=== PATIENT | male | born 1965 | race African-American/Black ===

== ENCOUNTER 2016-12-11 19:11 | Emergency (ER) | payer MEDICARE, OTHER ==
[~2016-12-11] VITALS: Ht 180.3 cm; Wt 81.6 kg
[2016-12-11] MEDS ORDERED: Haloperidol 5mg/ml Inj IM ONE (19:15)
[2016-12-11] MEDS ORDERED: DiphenhydrAMINE 50mg/ml Inj IM ONE (19:15)
[2016-12-11] MEDS ORDERED: LORazepam Inj 2mg/ml 1ml IM ONE (19:15)
[2016-12-11 19:16] VITALS: BP 164/80
[2016-12-11 22:01] VITALS: BP 150/81
[2016-12-11 22:05] VITALS: BP 143/78
--- NOTE | 2016-12-12 14:15 | Emergency Room Report ---
History of Present Illness General Chief Complaint: Behavioral Complaint Source: Patient, EMS Present Illness HPI 51YOM BIBEMS found walking in street yelling with hands over ears. Patient not providing additional HPI at this time - sitting in stretcher, hands over ears intermittently shouting. Per staff, patient has been in ED before, exhibiting similar behavior. Known psych history, schizophrenic. On anti-psychotic and cogentin. Allergies: Coded Allergies: UNABLE TO ASSESS (Unverified , 12/11/16) Patient History Past Medical History: psych hx Past Surgical History: unable to obtain Pertinent Family History: unable to obtain Immunizations: UTD Reviewed Nursing Documentation: PMH: Agreed, PSxH: Agreed Nursing Documentation-PMH History Of Psychiatric Problem: Yes Review of Systems All Other Systems: limited - patient not contributign Physical Exam Vital Signs Date Time Temp Pulse Resp B/P Pulse Ox O2 Delivery O2 Flow Rate FiO2 12/11/16 19:00 120 16 190/70 99 Room Air 12/11/16 19:16 97.6 Sp02 EP Interpretation: reviewed, abnormal General Appearance: normal inspection, well appearing, no apparent distress, alert, GCS 15, non-toxic Head: normocephalic, atraumatic Eyes: bilateral eye EOMI, bilateral eye PERRL ENT: normal ENT inspection, hearing grossly normal, normal voice Neck: normal inspection, full range of motion, supple, no bony tend Respiratory: normal inspection, lungs clear, normal breath sounds, no respiratory distress, no retraction, no wheezing Cardiovascular #1: regular rate, rhythm, no edema Gastrointestinal: normal inspection, normal bowel sounds, non tender, soft, no guarding, no hernia Genitourinary: no CVA tenderness Musculoskeletal: normal inspection, back normal, normal range of motion, Drake' s Sign negative Neurologic: normal inspection, alert, oriented x3, responsive, routing equipment tender III-XII nml as tested, motor strength/tone normal, speech normal Psychiatric: normal inspection, mood/affect normal, no suicidal/homicidal ideation, no delusions Skin: normal inspection, normal color, no rash Lymphatic: normal inspection Medical Decision Making Diagnostic Impression: Primary Impression: Behavioral change ER Course 51YOM with likely acute on chronic behavior change from schizophrenia. VS notable for hypertension. Afebrile. Otherwise non-toxic Patient was given Haldol/benadryl/ativan IM Was observed in the ED - did not become sedated, but in fact started talking and behaving normally/appropriately. Endorses non-compliance with meds. States he missed his regular monthly "injection" and cogentin. Feels better. Denies SI, HI, AVH After period of observation in ED, patient asked to go home. He knows his name , address, date/time. He was discharged home with recommended psych followup Initial hypertesion resolved s/p medication. Last Vital Signs Date Time Temp Pulse Resp B/P Pulse Ox O2 Delivery O2 Flow Rate FiO2 12/11/16 22:05 72 16 143/78 99 Room Air 12/11/16 22:01 97.6 Status: improved Disposition: HOME, SELF-CARE Condition: Improved Referrals: [facility],REFERRING (PCP) Patient Instructions: Schizophrenia FANG DESAI M.D. Dec 12, 2016 14:15
== END 2016-12-11 22:09 | disposition home or self-care (01) ==
LOC: EDBD 19:11 → EMR 19:25
DX: R46.89 Other symptoms and signs involving appearance and behavior (principal); F20.9 Schizophrenia, unspecified
CPT/HCPCS: 96372; 99284; J1200; J1630

== ENCOUNTER 2016-12-25 23:22 | Emergency (ER) | payer MEDICARE ==
[~2016-12-25] VITALS: Ht 172.7 cm; Wt 72.6 kg
[2016-12-25] MEDS ORDERED: Haloperidol 5mg/ml Inj ONE (23:29)
[2016-12-25] MEDS ORDERED: Haloperidol 5mg/ml Inj IM ONE (23:45)
--- NOTE | 2016-12-26 00:40 | Emergency Room Report ---
History of Present Illness General Chief Complaint: Behavioral Complaint Source: Medical Record, EMS Present Illness HPI This is a 51-year-old male with a history of schizophrenia. He is chronically homeless. He's been here multiple times under [facility] Moses. He was brought in because he had bizarre behavior. There is no trauma. No other complaint. Patient is a poor historian. Allergies: Coded Allergies: UNABLE TO ASSESS (Unverified , 12/11/16) Patient History Past Medical History: see triage record, old chart reviewed, psych hx Past Surgical History: unable to obtain Pertinent Family History: unable to obtain Immunizations: other Reviewed Nursing Documentation: PMH: Agreed, PSxH: Agreed Nursing Documentation-PMH Past Medical History: No History, Except For History Of Psychiatric Problem: Yes Review of Systems All Other Systems: limited - Patient is a poor historian Physical Exam Vital Signs Date Time Temp Pulse Resp B/P Pulse Ox O2 Delivery O2 Flow Rate FiO2 12/25/16 23:22 116 28 146/92 98 Room Air vitals mild tachycardia Sp02 EP Interpretation: reviewed, normal General Appearance: well appearing, no apparent distress, alert Head: normocephalic, atraumatic Eyes: bilateral eye EOMI, bilateral eye PERRL ENT: hearing grossly normal, normal pharynx Neck: full range of motion, supple, no meningismus Respiratory: chest non-tender, lungs clear, normal breath sounds Cardiovascular #1: regular rate, rhythm, no murmur Gastrointestinal: normal bowel sounds, non tender, no mass, no organomegaly, no bruit, non-distended Musculoskeletal: back normal, normal range of motion Neurologic: alert, oriented x3 Psychiatric: other - Patient is rambling Skin: warm/dry Medical Decision Making Diagnostic Impression: Primary Impression: Psychosis Qualified Codes: F23 - Brief psychotic disorder Additional Impression: Amphetamine abuse ER Course Patient presents with psychosis. Is no underlying schizophrenia exacerbated by drug use. He was combative and had to be sedated with Haldol. He sleeping comfortably now. Will reassess in the morning. This patient is a chronic risk of self injury due to poor impulse control, limited coping skills, and judgment intermittently impaired by intoxication. 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 Hospitalization would likely attenuate risk of self-harm only during fpc period, without lasting risk reduction. Serious self-harm , while possible, would likely be inadvertent, and because of impulsivity, and foreseeable. For these reasons, I do not believe hospitalization would provide meaningful reduction in risk of self-harm. Last Vital Signs Date Time Temp Pulse Resp B/P Pulse Ox O2 Delivery O2 Flow Rate FiO2 12/25/16 23:22 116 28 146/92 98 Room Air Status: improved Disposition: HOME, SELF-CARE Condition: Stable Referrals: [facility],REFERR[facility] (PCP) Additional Instructions: abstain from drugs and alcohol. Followup with your Dr. in 7 days. Followup with mental health. Return if worse. MILDRED KHOURY M.D. Dec 26, 2016 00:40
[2016-12-26 01:10] VITALS: BP 137/84
[2016-12-26 06:02] VITALS: BP 137/84
[2016-12-26] MEDS ORDERED: BENZTROPINE MESY1 MG PO (15:16)
== END 2016-12-26 06:04 | disposition home or self-care (01) ==
LOC: EDBD 23:22 → EMR 23:35
DX: F23 Brief psychotic disorder (principal); F15.10 Other stimulant abuse, uncomplicated; Z59.0 Homelessness; F20.9 Schizophrenia, unspecified
CPT/HCPCS: 80300; 96372; 99283; J0515; J1630

== ENCOUNTER 2016-12-26 14:53 | Emergency (ER) | payer MEDICARE, OTHER ==
[~2016-12-26] VITALS: Ht 180.3 cm; Wt 68.0 kg
--- NOTE | 2016-12-26 15:14 | Emergency Room Report ---
History of Present Illness General Chief Complaint: Allergic Reaction Source: Patient Present Illness HPI 51-year-old male presents emergency department complaining of cramping in his toes, hands and intermittent biting his tongue due to tightness in his jaw since yesterday. Patient states he has a history of schizophrenia and was administered IM Haldol for which he has had previous dystonic reactions to in the past. Patient states that Benadryl was given in the past with no relief in the only medication works for him is Cogentin. Patient denies bleeding from the time she denies swelling of the lips or tongue, denies difficulty breathing, wheezing or shortness of breath. Patient reports that when he attempts to walk his toes curl up just like previous reactions to Haldol he has had in the past. pt. denies taking medication regularly for his psychiatric symptoms. Denies CP, Palpitations, LOC, AMS, dizziness, Changes in Vision, Sensation, paresthesias, or a sudden severe headache. Allergies: Coded Allergies: No Known Allergies (Unverified , 12/26/16) UNABLE TO ASSESS (Unverified , 12/11/16) Patient History Past Medical History: see triage record Past Surgical History: none Pertinent Family History: none Reviewed Nursing Documentation: PMH: Agreed, PSxH: Agreed Nursing Documentation-PMH Past Medical History Deferred: Pt Cognitively Impaired Past Medical History: No Stated History Review of Systems All Other Systems: negative except mentioned in HPI Physical Exam Vital Signs Date Time Temp Pulse Resp B/P Pulse Ox O2 Delivery O2 Flow Rate FiO2 12/26/16 14:53 97.5 91 16 127/80 99 Room Air Sp02 EP Interpretation: reviewed, normal General Appearance: no apparent distress, alert, GCS 15, non-toxic Head: normocephalic, atraumatic Eyes: bilateral eye PERRL, bilateral eye normal inspection ENT: hearing grossly normal, normal pharynx, no angioedema, normal voice, TMs + canals normal, other - no swelling of the lips or tongue, no appreciable lesions/bites/trauma noted to the tongue. pt. exhibits lip smacking. Neck: full range of motion, no meningismus, no bony tend, supple/symm/no masses Respiratory: chest non-tender, lungs clear, normal breath sounds, speaking full sentences Cardiovascular #1: regular rate, rhythm, no edema, normal capillary refill Cardiovascular #2: 2+ radial (R), 2+ radial (L), 2+ dorsalis pedis (R), 2+ dorsalis pedis (L) Gastrointestinal: normal bowel sounds, non tender, soft, no guarding, no rebound Rectal: deferred Musculoskeletal: back normal, gait/station normal, normal range of motion, non- tender, other - pt is intermittently squeezing /making fists bilaterally. pt is also able to relax hands. Neurologic: alert, oriented x3, responsive, motor strength/tone normal, sensory intact, speech normal Psychiatric: memory normal, anxious - mildly anxious affect, pt exhibits lip smacking. Skin: normal color, no rash, warm/dry, well hydrated Lymphatic: no adenopathy Medical Decision Making PA Attestation Dr. Samaniego is my supervising Physician whom patient management has been discussed with. Diagnostic Impression: Primary Impression: Tongue biting Additional Impression: Dystonia of foot ER Course 51-year-old male presents emergency department complaining of cramping in his toes, hands and intermittent biting his tongue due to tightness in his jaw since yesterday. Patient states he has a history of schizophrenia and was administered IM Haldol for which he has had previous dystonic reactions to in the past. Patient states that Benadryl was given in the past with no relief in the only medication works for him is Cogentin. Patient denies bleeding from the time she denies swelling of the lips or tongue, denies difficulty breathing, wheezing or shortness of breath. Patient reports that when he attempts to walk his toes curl up just like previous reactions to Haldol he has had in the past. pt. denies taking medication regularly for his psychiatric symptoms. Ddx considered but are not limited to cellulitis, allergic reaction, angio edema , abscess, EPS, Dystonic Reaction, NMS Vital signs: are WNL, pt. is afebrile H&PE are most consistent with mild subjective dystonic reaction, no evidence to airway compromise or rapid progression of symptoms. lip smacking suspicious for psych sx vs. drug use. - Review of pt. previous chart from visit 2 days ago shows UDS positive for amphetamines. ORDERS: none required at this time, the diagnosis is clinical ED INTERVENTIONS: IM Cogentin 2mg. will d/c pt. with oral medication for 3 days. d/w pt. proper follow up. pt. given [facility] urgent care information. pt. to return to ED with worsening of symptoms. DISCHARGE: At this time pt. is stable for d/c to home. Will provide printed patient care instructions, and any necessary prescriptions. Care plan and follow up instructions have been discussed with the patient prior to discharge. Last Vital Signs Date Time Temp Pulse Resp B/P Pulse Ox O2 Delivery O2 Flow Rate FiO2 12/26/16 14:53 97.5 91 16 127/80 99 Room Air Disposition: HOME, SELF-CARE Condition: Stable Scripts Benztropine Mesylate* (BENZTROPINE MESYLATE*) 1 Mg Tablet 1 MG PO BID for 2 Days, #4 TAB Prov: Kristen Velazquez 12/26/16 Patient Instructions: Dystonic Reaction Additional Instructions: Take medications as directed. Follow up with PCP in 3 days Return sooner to ED if new symptoms occur, or current symptoms become worse. Continue to refrain from substance abuse such as amphetamines. - Please note that this Emergency Department Report was dictated using [employer] caner technology software, occasionally this can lead to erroneous entry secondary to interpretation by the dictation equipment. Kristen Velazquez Dec 26, 2016 15:14
[2016-12-26] MEDS ORDERED: BENZTROPINE MESY1 MG PO (15:16)
[2016-12-26 15:30] VITALS: BP 120/78
[2016-12-26 15:55] VITALS: BP 120/78
== END 2016-12-26 15:55 | disposition home or self-care (01) ==
LOC: EDBD 14:53 → EMR 15:54
DX: G24.9 Dystonia, unspecified (principal); F20.9 Schizophrenia, unspecified
CPT/HCPCS: 96372; 99283; J0515

== ENCOUNTER 2017-01-03 20:20 | Emergency (ER) | payer MEDICARE ==
[~2017-01-03] VITALS: Ht 175.3 cm; Wt 68.0 kg
[~2017-01-03 20:20] MED LIST: BENZTROPINE MESY1 MG PO
[2017-01-03] MEDS ORDERED: DiphenhydrAMINE 50mg/ml Inj IM ONE (20:30)
[2017-01-03] MEDS ORDERED: LORazepam Inj 2mg/ml 1ml IM ONE (20:30)
[2017-01-03] MEDS ORDERED: Haloperidol 5mg/ml Inj IM ONE (20:30)
[2017-01-04] VITALS: BP 112/63
[2017-01-04 02:56] VITALS: BP 116/70
--- NOTE | 2017-01-04 04:17 | Emergency Room Report ---
Physical Exam Vital Signs Date Time Temp Pulse Resp B/P Pulse Ox O2 Delivery O2 Flow Rate FiO2 01/03/17 20:19 90 16 134/92 99 Room Air 01/04/17 00:00 97.3 Medical Decision Making Diagnostic Impression: Primary Impression: Psychosis Qualified Codes: F23 - Brief psychotic disorder Additional Impression: Amphetamine abuse ER Course Patient was seen initially by Dr. Beebe. Please see his H&P for further information. Patient was signed out to me. He's been here multiple time under this name and also as a [facility] Fernando Lopes. Usually with acute psychosis and altered mental status from drug and alcohol. He slept in the night. His awake now and is alert oriented. We'll discharge home. He is not suicidal or homicidal. This patient is a chronic risk of self injury due to poor impulse control, limited coping skills, and judgment intermittently impaired by intoxication. 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 Hospitalization would likely attenuate risk of self-harm only during assisted period, without lasting risk reduction. Serious self-harm , while possible, would likely be inadvertent, and because of impulsivity, and foreseeable. For these reasons, I do not believe hospitalization would provide meaningful reduction in risk of self-harm. Last Vital Signs Date Time Temp Pulse Resp B/P Pulse Ox O2 Delivery O2 Flow Rate FiO2 01/04/17 02:56 97.1 78 16 116/70 99 Room Air Status: improved Disposition: HOME, SELF-CARE Condition: Stable Referrals: [facility],REFERRING (PCP) Patient Instructions: Self-Destructive Behavior Additional Instructions: Abstain from drugs and alcohol. Go to rehabilitation. Followup with your DrPrimitivo in 2-3 days. Followup with mental health. Return if worse. MILDRED KHOURY M.D. Jan 04, 2017 04:17
[2017-01-04 05:28] VITALS: BP 122/78
--- NOTE | 2017-01-04 14:22 | Emergency Room Report ---
History of Present Illness General Chief Complaint: Behavioral Complaint Source: Patient, EMS Present Illness HPI 52-year-old male presents to ED for evaluation. Patient is well known to [facility]. Has been here multiple times under his real name and under the name of Luis Fernando Lopes. Patient is brought in by ambulance for bizarre behavior. Patient is holding his head with his hand screaming and yelling. Patient is known to perform this behavior in the past. Patient has extensive history of drug use. Patient is not providing any additional history at this time. No signs of trauma. Denies any suicidal homicidal ideation. No other aggravating relieving factors. Denies any other associated symptoms Allergies: Coded Allergies: No Known Allergies (Unverified , 12/26/16) UNABLE TO ASSESS (Unverified , 12/11/16) Patient History Past Medical History: psych hx Past Surgical History: none Pertinent Family History: none Social History: Reports: drug use, Denies: alcohol use, smoking Immunizations: UTD Reviewed Nursing Documentation: PMH: Agreed, PSxH: Agreed Nursing Documentation-PMH Past Medical History: No History, Except For History Of Psychiatric Problem: Yes Review of Systems All Other Systems: negative except mentioned in HPI Physical Exam Vital Signs Date Time Temp Pulse Resp B/P Pulse Ox O2 Delivery O2 Flow Rate FiO2 01/03/17 20:19 90 16 134/92 99 Room Air 01/04/17 00:00 97.3 Sp02 EP Interpretation: reviewed, normal General Appearance: alert, other - screaming, holding hands over ears Head: normocephalic Eyes: bilateral eye PERRL, bilateral eye normal inspection ENT: normal ENT inspection Neck: normal inspection Respiratory: chest non-tender, lungs clear, normal breath sounds, speaking full sentences Cardiovascular #1: regular rate, rhythm, no edema Gastrointestinal: normal inspection Rectal: deferred Genitourinary: no CVA tenderness Musculoskeletal: normal inspection Neurologic: alert, other - agitated/combative Psychiatric: other - agitated/combative Skin: normal inspection Lymphatic: normal inspection Medical Decision Making Diagnostic Impression: Primary Impression: Psychosis Qualified Codes: F20.9 - Schizophrenia, unspecified Additional Impression: Amphetamine abuse ER Course 52-year-old male brought in to ED for bizarre behavior. Screaming yelling Differential-psychosis, drug abuse, overdose Patient placed on stretcher. After initial history and physical, I reviewed EMR. Patient has been here multiple times. Patient typically given antipsychotic medication with resolution of symptoms Patient given Haldol/Ativan/Benadryl. Patient no longer screaming and agitated. Patient allowed to rest Patient signed out to Dr. Swanson pending reassessment when awake Last Vital Signs Date Time Temp Pulse Resp B/P Pulse Ox O2 Delivery O2 Flow Rate FiO2 01/04/17 05:28 97.1 80 18 122/78 99 Room Air Status: improved Disposition: HOME, SELF-CARE Condition: Stable Referrals: [facility],REFERRING (PCP) Patient Instructions: Self-Destructive Behavior Additional Instructions: Abstain from drugs and alcohol. Go to rehabilitation. Followup with your Dr. in 2-3 days. Followup with mental health. Return if worse. PETRONA MO M.D. Jan 04, 2017 14:22
== END 2017-01-04 05:31 | disposition home or self-care (01) ==
LOC: EDBD 20:20 → EMR 20:56
DX: F29 Unspecified psychosis not due to a substance or known physiological condition (principal); F15.10 Other stimulant abuse, uncomplicated; F28 Other psychotic disorder not due to a substance or known physiological condition
CPT/HCPCS: 96372; 99283; J1200; J1630